=== PATIENT | male | born 1995 | race Caucasian/White ===

== ENCOUNTER 2016-08-14 14:27 | Emergency (ER) | payer OTHER ==
[2016-08-14] MEDS ORDERED: SODIUM CHLORIDE IRRIG 1,000 ML BOTTLE IRRIGATION ONE (14:47)
--- NOTE | 2016-08-14 16:38 | ER NURSING DOCUMENTATION ---
Nurse's Notes [facility] Name:Migel Tsang Age:21 yrs Sex:Male :1995 Arrival Date:08/14/2016 Time:14:27 Bed2 Private MD: Diagnosis:2nd Degree Burn Hand Presentation: 08/14 14:32 Acuity: DIANE 3 lc 14:41 Acuity: DIANE 4 lc 14:41 Presenting complaint: Patient states: AT WORK ON 08/12 AND INJURED SKIN OF RIGHT HAND lc LIFTING A BUCKET OF CEMENT. NO OTHER INJURY. Transition of care: patient was not received from another setting of care. Notified ED Physician of patient's arrival and CC. 14:41 Method Of Arrival: Private Vehicle lc Triage Assessment: 14:43 General: Appears in no apparent distress, comfortable, Behavior is cooperative, lc pleasant. Pain: Complains of pain in palm of right hand Pain At worst was 4 out of 10 on a pain scale. Quality of pain is described as dull, throbbing, Pain began 2-3 days ago. Respiratory: Airway is patent Respiratory effort is even, unlabored. Derm: Skin is pink, warm & dry. Injury Description: CALUS TO PALM. Historical: - Allergies: No known drug Allergies; - Home Meds: 1. None - PMHx: None; - PSHx: None; - Tetanus: < 10 years. - Ebola Screening: : Patient negative for fever greater than or equal to 101.5 degrees Fahrenheit, and additional compatible Ebola Virus Disease symptoms. Patient denies exposure to infectious person. Patient reports travel to an Ebola-affected area in the 21 days before illness onset. Patient reports to have traveled to [facility] WHERE HE IS FROM. - Immunization history: Flu Vaccine unknown. - Social history: Smoking status: Patient uses tobacco products, current every day smoker. Screenin:46 Infectious Disease Risk None. Abuse screen: Denies threats or abuse. Denies injuries lc from another. Nutritional screening: No deficits noted. Assessment: 14:46 See Triage Assessment done by same RN. 14:47 Derm: CALUS HAD DRAINAGE TO THEM. Vital Signs: 14:45 BP 164 / 90; Pulse 104; Resp 16; Temp 98.6; Pulse Ox 96% on R/A; Weight 92 kg; Height 6 lc ft. 0 in. (183 cm); Pain 1/10; 14:45 Body Mass Index 27.47 (92.00 kg, 183 cm) ED Course: 14:30 Patient arrived in ED. ama 14:32 Triage completed. 14:35 Fer Davila MD is Attending Physician. tl1 14:46 Valuables Remains with patient Patient has correct armband on for positive lc identification. Bed in low position. Call light in reach. 15:20 Adriana Werner, RN is Primary Nurse. 16:37 Wound care was cleaned with soap and water, debrided using dressed with bacitracin cling, Telfa Patient tolerated well. Administered Medications: No medications were administered Outcome: 16:04 Discharge ordered by . tl1 16:36 Discharged to home ambulatory. 16:36 Condition: stable 16:36 Discharge instructions given to patient, Instructed on discharge instructions, follow up and referral plans. wound care, Demonstrated understanding of instructions. 16:38 Patient left the ED. 08/15 15:06 Discharge F/U Call: Unable to reach: no answer Signatures: Adriana Werner RN RN Lamin Gore, Reg Reg Fer Huston MD MD tl1
--- NOTE | 2016-08-14 16:38 | ER PHYSICIAN DOCUMENTATION ---
Physician Documentation [facility] Name:Migel Tsang Age:21 yrs Sex:Male :1995 Arrival Date:08/14/2016 Time:14:27 Bed2 Private MD: Fer Amado Disposition: 08/14 16:40 Chart complete. tl1 Disposition: 08/14/16 16:04 Discharged to Home/Self Care. Impression: 2nd Degree Burn Hand. - Condition is Good. - Discharge Instructions: After Care - BURN, Second Degree. - Medical Reconciliation form form. - Follow up: Private Physician; When: 2 - 3 days; Reason: Recheck today's complaints. - Problem is new. - Symptoms have improved. HPI: 14:35 This 21 yrs old Male presents to ER with complaints of Burn - R HAND. tl1 14:35 The patient presents with a burn as a result of a hot surface, . Burn type and tl1 severity: 1st degree: approximately 1% total body surface area of 1st degree injury, of the right hand and left hand. 14:35 Onset: The symptom(s)/episode began/occurred suddenly, 2 day(s) ago. 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 He sustained small beckman to both hands on the callouses over the MCP joints where there are now roughly symmetric oval 8 x 10 mm blisters.. Historical: - Allergies: No known drug Allergies; - Home Meds: 1. None - PMHx: None; - PSHx: None; - Tetanus: < 10 years. - Ebola Screening: : Patient negative for fever greater than or equal to 101.5 degrees Fahrenheit, and additional compatible Ebola Virus Disease symptoms. Patient denies exposure to infectious person. Patient reports travel to an Ebola-affected area in the 21 days before illness onset. Patient reports to have traveled to [place] WHERE HE IS FROM. - Immunization history: Flu Vaccine unknown. - Social history: Smoking status: Patient uses tobacco products, current every day smoker. ROS: 14:35 Cardiovascular: Negative for chest pain, palpitations. tl1 14:35 Skin: Positive for blisters. Exam: 14:35 Constitutional: The patient appears in no acute distress. tl1 14:35 Head/face: Exam is negative for acute changes. 14:35 Cardiovascular: Rate: normal. 14:35 Respiratory: Respirations: normal. 14:35 Skin: Bilateral hand blisters at the bases of bilateral 3rd and 4th fingers, roughly 8 x 10 mm. It his hard to say if these are beckman or just overuse blisters. there is very slight erythema circumferentially about the 3rd finger of the right hand.. Vital Signs: 14:45 BP 164 / 90; Pulse 104; Resp 16; Temp 98.6; Pulse Ox 96% on R/A; Weight 92 kg; Height 6 lc ft. 0 in. (183 cm); Pain 1/; 14:45 Body Mass Index 27.47 (92.00 kg, 183 cm) lc MDM: 14:35 Patient medically screened. tl1 15:00 Data reviewed: vital signs, nurses notes, and as a result, I will discharge patient. tl1 Counseling: I had a detailed discussion with the patient and/or guardian regarding: the historical points, exam findings, and any diagnostic results supporting the discharge/admit diagnosis, the need for outpatient follow up, to return to the emergency department if symptoms worsen or persist or if there are any questions or concerns that arise at home. Response to treatment: the patient's symptoms have mildly improved after treatment, and as a result, I will discharge patient. Special discussion: Not clear whether these are overuse blisters or beckman; I suspect the former. In any event, he needs wound care and I recommended avoidance of work tomorrow, and keeping these clean dry, and using gloves.. ED course: Blisters of the right hand were debrided and dressed with bacitracin by JORDAN Wright.. Dispensed Medications: No medications were administered Signatures: Adriana Werner RN RN lc Leigh, Tom, MD MD tl1
== END 2016-08-14 16:38 | disposition home or self-care (01) ==
LOC: ER 14:27
DX: T23.251A Burn of second degree of right palm, initial encounter (principal); T23.252A Burn of second degree of left palm, initial encounter; T31.0 Burns involving less than 10% of body surface; X19.XXXA Contact with other heat and hot substances, initial encounter; Y92.69 Other specified industrial and construction area as the place of occurrence of the external cause; Y93.H3 Activity, building and construction; Y99.0 Civilian activity done for income or pay
CPT/HCPCS: 99283; A4217